=== PATIENT | male | born 1955 | race Caucasian/White ===

== ENCOUNTER 2022-05-07 14:37 | Emergency (ER) | payer BC ==
[~2022-05-07 14:37] MED LIST: EPINEPHrine 10 ML SYRINGE (0.1 MG/ML) ONE; SODIUM BICARB 8.4% 50 ML SYR (1 MEQ/ML) ONE
[2022-05-07 14:57] VITALS: PULSE 0
--- NOTE | 2022-05-07 15:35 | ED ---
General Adult HPI - General Chief complaint: Cardiac Arrest/CPR Stated complaint: cardiac arrest Time Seen by Provider: 05/07/22 14:37 Source: patient, EMS, RN notes reviewed, old records reviewed Mode of arrival: EMS Limitations: physical limitation - History of Present Illness Initial comments: This is a 66-year-old male who was having some intermittent chest pain that he thought was heartburn. Patient's states [place] about [place] when he started having some chest pain and collapsed a bystander started doing CPR and he continued to the whole way into the shore. EMS arrived they thought the patient might be in atrial fibrillation and they shocked him once after that he was in asystole we continued CPR and bagging the patient and gave one epi prior to arrival. Upon arrival patient was in asystole. Review of Systems ROS Statement: Those systems with pertinent positive or pertinent negative responses have been documented in the HPI. ROS Other: All systems not noted in ROS Statement are negative. General Exam - General Exam Comments Initial Comments: GENERAL: Patient appears well-developed and well-nourished. Patient is unresponsive being bagged and CPR is in progress EYES: Pupils were fixed and dilated and nonreactive PULMONARY: No spontaneous breathing CARDIOVASCULAR: No heart sounds noted ABDOMEN: No gross abnormalities or distention noted SKIN: Skin is clear with no lesions or rashes and otherwise unremarkable. NEUROLOGIC: Patient is unresponsive with a GCS of MUSCULOSKELETAL: No gross abnormalities noted PSYCHIATRIC: Unable to evaluate Limitations: physical limitation Course Vital Signs 05/07/22 14:47 Pulse Rate 0 L Procedures - Intubation Laryngoscope: Macario Size: 3 ET Tube Size: 8 ET Tube Uncuffed: No Tube Secured Location: teeth Tube Placement Confirmation: visualized tube passing through cords, equal breath sounds bilaterally, no breath sounds over epigastrium, confirmation by capnometry Intubation Complications: none Medical Decision Making - Medical Decision Making ACLS protocol was followed patient was intubated by myself patient received multiple doses of epinephrine and remained in asystole throughout. Please see nursing paperwork for specific details. Patient was eventually pronounced at 1456. I spoke to family on 2 different occasions I did speak with the medical office coordinator. Critical Care Time Critical Care Time: Yes Total Critical Care Time: 35 Disposition Clinical Impression: Cardiopulmonary arrest Disposition: Referrals: Brodie Danielle MD [Primary Care Provider] - 1-2 days Time of Disposition: 15:34 Preliminary Cause of : Cardiopulmonary arrest
== END 2022-05-07 16:40 | disposition expired ==
LOC: EC 14:37
DX: I46.9 Cardiac arrest, cause unspecified (principal)
CPT/HCPCS: 99291; 92950; 31500; J0171